=== PATIENT | male | born 2005 | race Hispanic/Latino ===

== ENCOUNTER 2025-11-06 22:33 | Emergency (ER) | payer OTHER, BC ==
[~2025-11-06] VITALS: Ht 175.3 cm; Wt 73.9 kg
[2025-11-06 22:47] VITALS: BP 143/89; PULSE 64; RESP 20; TEMP 98.7; O2SAT 99
--- NOTE | 2025-11-06 22:48 | ERN ---
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 Apparently he was not a medication room when the door swung out by another employee the knob came back and hit him in the lower back area he felt the blunt injury and began experiencing pain in the lower back area. No other injuries. No loss of consciousness. Patient is not on any blood thinners. No problems with incontinence. No history of any blurred vision. He also stated that he felt tingling in his lower extremities slightly. Temperature 98.7 pulse 64 respirations 20 blood pressure 143/89 with a pulse oximetry of 99% on room air He has a history of asthma. Allergies: Coded Allergies: No Known Allergies (Unverified Allergy, Unknown, 11/06/25) Home Meds Active Scripts Ibuprofen (Ibuprofen) 800 Mg Tablet, 800 MG PO Q8H PRN for PAIN for 5 Days, #15 TAB 0 Refills Prov:SHARON SAMS MD 11/07/25 Past Medical History Past Medical History: Asthma Surgical History: None Family History: Negative Social History: Negative RN Note Reviewed/Agreed w/PFSH: Yes Review of System Dictation Constitutional: Negative for fever,chills, and weight loss Eyes: Negative for injury, pain,redness, and discharge ENT: Negative for injury,pain or swelling Cardiovascular: Negative for chest pain, palpitations, and edema Respiratory: Negative for shortness of breath, cough, and wheezing, Abdomen/GI: Negative for abdominal pain, nausea, vomiting, diarrhea, and constipation Back: Positive for injury from a door and pain : Negative for injury, bleeding and discharge MS/Extremity: Negative for injury and deformity Skin: Negative for rash, and discoloration Neuro: Negative for headache, weakness, numbness, tingling, and seizure Psych: Negative for suicide ideation, homicidal ideation, and hallucinations Initial Vital Sign VS Vital Signs Date Time Temp Pulse Resp B/P (MAP) Pulse Ox O2 Delivery O2 Flow Rate FiO2 11/06/25 22:35 98.8 64 20 143/89 99 Room Air 11/06/25 22:47 0 21 Physical Exam Dictation General: awake, alert, NAD Head/Face: Normocephalic, atraumatic Eyes: PERRL, EOMI, vision at baseline ENT: oral cavity clear, TMs clear, no signs of infection Neck: Trachea midline, supple, no nuchal rigidity Cardiovascular: RRR, normal S1/S2, No MRGs, no JVD Respiratory: CTAB, no respiratory distress, No rales or wheezes Abdomen: Soft, non-tender, non-distended, normal bowel sounds, no guarding or rebound. Skin: Warm, dry, normal turgor, no rash Back-lower lumbar area mild tenderness to palpation superficially but no erythema bony abnormalities ecchymosis, lacerations. MS/Extremity: Pulses equal, no cyanosis, neurovascular intact, FROM Neuro: COAx4, GCS 15, strength 5/5, CN 2-12 intact, normal cerebellar exam, normal gait, Psych: Normal behavior, mood, and affect normal Extremities-trace edema without any palpable cords, Homans sign is negative Results (Laboratory/Radiology) X-RAY Comment: REASON: back pain ORDERING PHYSICIAN: TUTU MARTINEZ PAC PROCEDURE: LUMB 2 3VW - LUMBAR SPINE 2-3VWS EXAM: CR Lumbar Spine, 3 views. CLINICAL HISTORY: Back pain COMPARISON: None provided. FINDINGS: Probable partial sacralization of the L5 vertebra on the left side. Lumbar alignment is within normal limits. Normal intervertebral disc spaces. Normal vertebral body heights. No acute fracture. Soft tissues are within normal limits. IMPRESSION: No acute bony changes.Probable partial sacralization of the L5 vertebra on the left side. /[place] DICTATED BY: SARA ROWLEY Jr., MD DATE: 11/07/25145 ELECTRONICALLY SIGNED BY: SARA ROWLEY Jr., MD DATE: 11/07/25145 ED Course ED Course Orders Procedure Category Date Status Time Ketorolac PHA 11/06/25 Complete Tromethamine 15mg/Ml 23:00 Lumbar Spine 2-3vws RAD 11/06/25 Resulted 23:32 Current Medications Medications (Trade) Dose Ordered Sig/Tianna Route PRN Reason Start Time Stop Time Status Last Admin Dose Admin Ketorolac Tromethamine (toRADol) 15 mg ONCE ONCE IM 11/06/25 23:00 11/06/25 23:01 DC 11/06/25 22:57 Vital Signs Date Time Temp Pulse Resp B/P (MAP) Pulse Ox O2 Delivery O2 Flow Rate FiO2 11/06/25 22:47 98.8 64 20 143/89 99 Room Air* 0 21 11/06/25 22:35 98.8 64 20 143/89 99 Room Air Medical Decision Making MDM Differential diagnosis: Contusion of the lower lumbar spine, Blunt injury, Lumbago, degenerative disc disease, paraspinal muscle spasm, central canal stenosis, dish, optimal stenosis, herniated intervertebral discs, spondylolisthesis 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 Apparently he was not a medication room when the door swung out by another employee the knob came back and hit him in the lower back area he felt the blunt injury and began experiencing pain in the lower back area. No other injuries. No loss of consciousness. Patient is not on any blood thinners. No problems with incontinence. No history of any blurred vision. He also stated that he felt tingling in his lower extremities slightly. Temperature 98.7 pulse 64 respirations 20 blood pressure 143/89 with a pulse oximetry of 99% on room air He has a history of asthma. X-ray of the lumbar spine was negative for any fractures or dislocations. I updated the patient and his father on x-ray findings and recommended that he should see his primary care physician and be referred to orthopedist or neuros urgeon as deemed necessary He received Toradol and responded to the medication Rationale: Tests considered and ordered secondary to shared decision making include: X-ray of the lumbar spine Previous outside records reviewed: Old ER visits. Risk of complication and/or morbidity or mortality of patient management: None Medications-Per medication reconciliation Need for hospitalization: Patient does not meet criteria for hospitalization. Need for emergency major/minor surgery: No There are no social concerns with this patient. Prescription drug management Prescriptions will include symptomatic care Patient's prior external medical records from other ER visits were reviewed by me as indicated. Prior testing and results from previous visits were reviewed. Prior tests were taken into account with medical decision making and resource utilization, independent historian/historians were used to obtain complete medical history. I independently interpreted the test that were performed, results were reviewed by me and considered findings on radiology if ordered. Medical management and examination interpretation discussions were had by me with other qualified healthcare professionals as indicated for the patient's care. Problem List Problem List: (1) Lumbar contusion (2) Injury of lower back DX & DISP Disposition: Discharge Departure Impression: Primary Impression: Lumbar contusion Additional Impression: Injury of lower back Condition: Stable Scripts Ibuprofen (Ibuprofen) 800 Mg Tablet 800 MG PO Q8H PRN for PAIN for 5 Days, #15 TAB 0 Refills Prov: SHARON SAMS MD 11/07/25 Additional Instructions: Patient and the caregiver have been informed of all the diagnostic tests and the imaging conducted during the today's visit to the emergency room and has verbalized understanding of the results I have personally reviewed and interpreted all diagnostic exams performed here in the ER today as well as the vital signs documented by the nursing staff. The patient is now being discharged to home and should follow up with the primary care physician or the specialist as directed by the ER staff. Referrals: NONE (PCP) SHARON SAMS MD Nov 06, 2025 22:48
--- NOTE | 2025-11-07 00:47 | HMCIMG ---
EXAM: CR Lumbar Spine, 3 views. CLINICAL HISTORY: Back pain COMPARISON: None provided. FINDINGS: Probable partial sacralization of the L5 vertebra on the left side. Lumbar alignment is within normal limits. Normal intervertebral disc spaces. Normal vertebral body heights. No acute fracture. Soft tissues are within normal limits. IMPRESSION: No acute bony changes.Probable partial sacralization of the L5 vertebra on the left side. /[place]
== END 2025-11-07 01:36 | disposition home or self-care (01) ==
LOC: EDH 22:33
DX: S30.0XXA Contusion of lower back and pelvis, initial encounter (principal); J45.909 Unspecified asthma, uncomplicated; W22.8XXA Striking against or struck by other objects, initial encounter; Y93.89 Activity, other specified; Y92.89 Other specified places as the place of occurrence of the external cause; Y99.8 Other external cause status
CPT/HCPCS: 99283; 72100; 96372; J1885